=== PATIENT | female | born 1950 | race Caucasian/White ===

== ENCOUNTER → 2017-01-24 | Outpatient (CLI) | payer MEDICARE ==
--- NOTE | 2017-01-24 15:41 | RAD ---
INDICATION: Left calf pain COMPARISON: None. TECHNIQUE: Grayscale, color and doppler ultrasound images were obtained of the left lower extremity venous vasculature. LEFT: No thrombus identified in the common femoral vein, femoral vein, popliteal vein or visualized calf veins. IMPRESSION: 1. No thrombus identified in deep venous system of the left lower extremity.
== END | disposition home or self-care (01) ==
LOC: US 11:58
PROVIDERS: ATTEND Family Medicine
DX: M79.662 Pain in left lower leg (principal)
CPT/HCPCS: 93971